=== PATIENT | female | born 1960 | race African-American/Black ===

== ENCOUNTER 2017-04-26 10:33 | Emergency (ER) | payer OTHER ==
[~2017-04-26 10:33] MED LIST: AMOX1TAB61 PO; LANS30CA PO; MECL25TA3 PO; ONDA4TAB10 PO; RANI150T6 PO
[2017-04-26] MEDS ORDERED: ONDA4TAB7 PO (10:56)
--- NOTE | 2017-04-26 10:56 | PHYS DOC ---
Past History Past Medical History: No Pertinent History Past Surgical History: Cholecystectomy Alcohol Use: None Drug Use: None Adult General Chief Complaint Chief Complaint: NAUSEA/VOMITING/DIARRHEA HPI HPI 56-year-old female presenting to the emergency department with nausea vomiting and diarrhea. She reports her symptoms been present for approximately 2-1/2 days. She reports since starting on Tuesday morning. It initially started off with nausea and then over the past 2 days she has experienced both vomiting and diarrhea. Her vomitus is nonbloody and nonbilious. She reports having history of a cholecystectomy. Her diarrhea is nonbloody and nonmucoid. She reports having about 5-6 bowel movement per day. She was today seen in her primary care physician clinic who referred her here for further evaluation workup and care. She denies any fevers at home. She does have a mild headache which is similar to previous headaches. She describes her pain in her head as a mild intermittent nonradiating pain not associated with neck stiffness. Review of systems is negative for numbness weakness tingling or any focal neurologic deficits. She denies vision changes. All other review of systems is negative unless otherwise noted in history of present illness. ED course: 56-year-old female presenting to the emergency department today with nausea vomiting and diarrhea. Vital signs show the patient to be afebrile with a normal heart rate. Blood pressure within normal limits. IV established. IV fluids and nausea medications given. Patient denies abdominal pain. Pertinent physical exam findings show Soft nontender abdomen without rebound tenderness or guarding present. Negative McBurneys point. Negative Naylor sign. No ecchymosis present. Bowel sounds are hyperactive. Not tympanic. Abdomen is nondistended. Blood work obtained and reviewed. On reexamination the patient is feeling much better. She is able to tolerate oral intake in the emergency department. Repeat abdominal exam continues to show soft nontender abdomen. The patient was then discharged home in stable condition to follow up with their primary care physician over the next 2-3 days. They were to return if their symptoms worsened or if they were concerned for any reason. [id number] discharge instructions and return precautions were given. Patient's questions were answered to their satisfaction. Patient is comfortable plan. Review of Systems Review of Systems SEE ABOVE Current Medications Current Medications Current Medications Medications (Trade) Dose Ordered Sig/Mario Start Time Stop Time Status Last Admin Dose Admin Ondansetron HCl (Zofran) 4 mg 1X ONCE 04/26/17 11:00 04/26/17 11:01 UNV Sodium Chloride 1,000 ml @ 1,000 mls/hr 1X ONCE 04/26/17 11:00 04/26/17 11:59 UNV Allergies Allergies Allergies Coded Allergies Type Severity Reaction Last Updated Verified No Known Drug Allergies 05/15/15 No Physical Exam Physical Exam Constitutional: Well developed, well nourished, no acute distress, non-toxic appearance. [] HENT: Normocephalic, atraumatic, bilateral external ears normal, oropharynx moist, no oral exudates, nose normal. [] Eyes: PERRLA, EOMI, conjunctiva normal, no discharge. [] Neck: Normal range of motion, no tenderness, supple, no stridor. [] Cardiovascular:Heart rate regular rhythm, no murmur [] Lungs & Thorax: Bilateral breath sounds clear to auscultation [] Abdomen: Bowel sounds normal, soft, no tenderness, no masses, no pulsatile masses. [] see above Skin: Warm, dry, no erythema, no rash. [] Back: No tenderness, no CVA tenderness. [] Extremities: No tenderness, no cyanosis, no clubbing, ROM intact, no edema. [] Neurologic: Alert and oriented X 3, normal motor function, normal sensory function, no focal deficits noted. [] Psychologic: Affect normal, judgement normal, mood normal. [] EKG EKG [] Radiology/Procedures Radiology/Procedures [] Course & Med Decision Making Course & Med Decision Making Pertinent Labs and Imaging studies reviewed. (See chart for details) [] Dragon Disclaimer Dragon Disclaimer This chart was dictated in whole or in part using Voice Recognition software in a busy, high-work load, and often noisy Emergency Department environment. It may contain unintended and wholly unrecognized errors or omissions. Departure Departure: Impression: Primary Impression: Nausea vomiting and diarrhea Condition: STABLE Referrals: SUNNY ZELAYA MD (PCP) Patient Instructions: Diarrhea, Nausea and Vomiting Additional Instructions: Thank you for allowing us to participate in your care today. Followup with your primary care physician in 3 days if your symptoms do not improve. Call your Primary Doctor tomorrow and inform them of your visit today. If you do not have a primary care provider you can ask for a list of our primary care providers. Return to the emergency department you have any new or concerning findings. This should be evaluated by the primary care physician and any necessary consulting services for continued management within a few days after discharge. Return to emergency room if you have any new or concerning symptoms including but not limited to fever, chills, nausea, vomiting, intractable pain, any new rashes, chest pain, shortness of air, uncontrolled bleeding, difficulty breathing, and/or vision loss. Scripts Ondansetron Hcl (ZOFRAN) 4 Mg Tablet 1 TAB PO PRN Q6HRS Y for NAUSEA, #6 TAB Prov: MELVINA HOPPER MD 04/26/17 MELVINA HOPPER MD Apr 26, 2017 10:56
[2017-04-26] MEDS ORDERED: IV NORMAL SALINE 1,000ML 1,000 ML IV ONE (11:00)
[2017-04-26 11:04] LABS: BASO % 1 % (0-3); EOS # 0.1 x10^3/uL (0.0-0.7); EOS % 3 % (0-3); HEMATOCRIT 37.7 % (36.0-47.0); HEMOGLOBIN 12.4 g/dL (12.0-15.5); LYMPH # 1.3 x10^3/uL (1.0-4.8); LYMPH % 43 % (24-48); MEAN CORPUSCULAR HEMOGLOBIN 28 pg (25-35); MEAN CORPUSCULAR HGB CONC 33 g/dL (31-37); MEAN CORPUSCULAR VOLUME 85 fL (79-100); MONO # 0.4 x10^3/uL (0.0-1.1); MONO % 13 % (0-9); NEUT # 1.3 x10^3uL (1.8-7.7); NEUT % 42 % (31-73); PLATELET COUNT 172 x10^3/uL (140-400); RED BLOOD COUNT 4.42 x10^6/uL (3.50-5.40); RED CELL DISTRIBUTION WIDTH 12.4 % (11.5-14.5); WHITE BLOOD COUNT 3.2 x10^3/uL (4.0-11.0)
[2017-04-26] MEDS ORDERED: ONDANSETRON PF 4 MG/2 ML VIAL. IV ONE (11:15)
[2017-04-26 11:18] LABS: ALBUMIN 3.7 g/dL (3.4-5.0); CALCIUM 9.1 mg/dL (8.5-10.1); CREATININE 0.8 mg/dL (0.6-1.0); DIRECT BILIRUBIN 0.1 mg/dL (0.0-0.2); GFR 89.8; POTASSIUM 3.6 mmol/L (3.5-5.1); TOTAL BILIRUBIN 0.3 mg/dL (0.2-1.0); TOTAL PROTEIN 8.7 g/dL (6.4-8.2)
[2017-04-26 11:25] LABS: BACTERIA,URINE 0 /HPF (0-FEW); BILIRUBIN,URINE NEG (NEG); CLARITY,URINE CLEAR; COLOR,URINE YELLOW; GLUCOSE,URINE NEG (NEG); NITRITE,URINE NEG (NEG); RBC,URINE RARE /HPF (0-2); SQUAMOUS EPITHELIAL CELL,UR OCC /LPF; UROBILINOGEN,URINE 0.2 mg/dL (0.2 mg/dL); WBC,URINE 0 /HPF (0-4)
[2017-04-26 12:54] VITALS: BP 123/78
== END 2017-04-26 12:40 | disposition home or self-care (01) ==
LOC: ER 10:33
DX: R11.2 Nausea with vomiting, unspecified (principal); R19.7 Diarrhea, unspecified; R51 Headache; Z90.49 Acquired absence of other specified parts of digestive tract
CPT/HCPCS: 36415; 80048; 80076; 81001; 83605; 83690; 85025; 96361; 96374; 99284; J2405; J7030

== ENCOUNTER → 2017-11-18 | Outpatient (CLI) | payer OTHER ==
[~2017-11-18] MED LIST changes: +IOHEXOL 240 MG/ML 50ML VIAL. ONE; +IOHEXOL 300 MG/ML 75 ML VIAL. IV ONE; +ONDA4TAB7 PO
[2017-11-18 17:11] LABS: BASO % 0 % (0-3); EOS % 1 % (0-3); HEMATOCRIT 41.5 % (36.0-47.0); HEMOGLOBIN 13.4 g/dL (12.0-15.5); LYMPH # 1.4 x10^3/uL (1.0-4.8); LYMPH % 40 % (24-48); MEAN CORPUSCULAR HEMOGLOBIN 28 pg (25-35); MEAN CORPUSCULAR HGB CONC 32 g/dL (31-37); MEAN CORPUSCULAR VOLUME 86 fL (79-100); MONO # 0.4 x10^3/uL (0.0-1.1); MONO % 11 % (0-9); NEUT # 1.7 x10^3uL (1.8-7.7); NEUT % 48 % (31-73); PLATELET COUNT 181 x10^3/uL (140-400); RED BLOOD COUNT 4.84 x10^6/uL (3.50-5.40); RED CELL DISTRIBUTION WIDTH 12.3 % (11.5-14.5); WHITE BLOOD COUNT 3.5 x10^3/uL (4.0-11.0)
[2017-11-18 17:17] LABS: ALBUMIN/GLOBULIN RATIO 0.8 (1.0-1.7); CALCIUM 9.7 mg/dL (8.5-10.1); CREATININE 0.8 mg/dL (0.6-1.0); GFR 89.5; POTASSIUM 3.6 mmol/L (3.5-5.1); TOTAL BILIRUBIN 0.4 mg/dL (0.2-1.0); TOTAL PROTEIN 9.1 g/dL (6.4-8.2)
--- NOTE | 2017-11-18 17:35 | RAD ---
CT abdomen and pelvis with contrast 11/18/2017 CLINICAL INDICATION: Lower abdominal pain with nausea and vomiting. COMPARISON: CT abdomen and pelvis 05/12/2015 TECHNIQUE: Multiple CT images of the abdomen and pelvis were obtained following intravenous and ministration of 75 mL Omnipaque 300. *One or more of the following individualized dose reduction techniques were utilized for this examination: 1. Automated exposure control. 2. Adjustment of the mA and/or kV according to patient size. 3. Use of iterative reconstruction technique. FINDINGS: Heart size is normal. Visualized lung bases are clear. There is mild focal fatty infiltration in the liver adjacent to the falciform. Prior cholecystectomy. Spleen, adrenal glands, pancreas and kidneys are unremarkable. No bile duct dilatation. Abdominal aorta is normal in caliber. Major portal, splenic and visualized superior mesenteric veins are widely patent. No retroperitoneal or mesenteric lymphadenopathy. The small and large bowel loops are normal in caliber without obstruction. Appendix is normal in appearance. There are few scattered colonic diverticula without diverticulitis. Urinary bladder unremarkable. Prior hysterectomy with the vaginal cuff unremarkable. No iliac or inguinal lymphadenopathy. Moderate disc degeneration at L4-L5 with disc space narrowing, endplate sclerosis and marginal osteophyte formation. There are no destructive osseous lesions. IMPRESSION: 1. No CT evidence of acute abdominal or pelvic process. 2. No bowel obstruction, free fluid or appendicitis. 3. Mild diverticulosis without diverticulitis. No abdominal free fluid. No pneumoperitoneum. Electronically signed by: Arik Bonds MD (11/18/2017 5:31 PM) [id number]
== END | disposition home or self-care (01) ==
LOC: CT 16:07
PROVIDERS: ATTEND Family Medicine Sports Medicine
DX: K57.90 Diverticulosis of intestine, part unspecified, without perforation or abscess without bleeding (principal); M51.36 Other intervertebral disc degeneration, lumbar region; M25.78 Osteophyte, vertebrae; K76.0 Fatty (change of) liver, not elsewhere classified; Z90.49 Acquired absence of other specified parts of digestive tract
CPT/HCPCS: 36415; 74177; 80053; 85025; Q9966; Q9967

== ENCOUNTER 2017-11-19 10:05 | Emergency (ER) | payer OTHER ==
[~2017-11-19] VITALS: Ht 175.3 cm; Wt 80.7 kg
[~2017-11-19 10:05] MED LIST changes: -IOHEXOL 240 MG/ML 50ML VIAL. ONE; -IOHEXOL 300 MG/ML 75 ML VIAL. IV ONE
[2017-11-19] MEDS ORDERED: ONDANSETRON ODT 4 MG TAB.RAPDIS PO ONE (10:30)
--- NOTE | 2017-11-19 10:48 | PHYS DOC ---
Past History Past Medical History: No Pertinent History Past Surgical History: No Surgical History Alcohol Use: None Drug Use: None Adult General Chief Complaint Chief Complaint: NAUSEA/VOMITING/DIARRHEA HPI HPI Patient is a 57 year old F who presents with nausea over the past 4 days. She states that she had nasal drainage and congestion several days prior to the start of her nausea. She was seen by her doctor yesterday. At that time she did have labs and CT of her abd/pelvis with IV contrast. Oral contrast was attempted to be used however she vomited it up. This the only time she has vomited during this episode. She has no other associated symptoms at this time. She has no other exacerbating or alleviating factors. Review of Systems Review of Systems Constitutional: Denies fever or chills [] Eyes: Denies change in visual acuity, redness, or eye pain [] HENT: Denies nasal congestion or sore throat [] Respiratory: Denies cough or shortness of breath [] Cardiovascular: No additional information not addressed in HPI [] GI: Denies abdominal pain, bloody stools or diarrhea [] : Denies dysuria or hematuria [] Musculoskeletal: Denies back pain or joint pain [] Integument: Denies rash or skin lesions [] Neurologic: Denies headache, focal weakness or sensory changes [] Endocrine: Denies polyuria or polydipsia [] All other systems were reviewed and found to be within normal limits, except as documented in this note. Family History Family History No pertinent family medical history was reported Allergies Allergies Allergies Coded Allergies Type Severity Reaction Last Updated Verified No Known Drug Allergies 05/15/15 No Physical Exam Physical Exam Constitutional: Well developed, well nourished, no acute distress, non-toxic appearance. [] HENT: Normocephalic, atraumatic Eyes: EOMI, conjunctiva normal, no discharge. [] Neck: Normal range of motion, no tenderness, supple, no stridor. [] Cardiovascular:Heart rate regular rhythm, no murmur [] Lungs & Thorax: Bilateral breath sounds clear to auscultation [] Abdomen: Bowel sounds normal, soft, no tenderness, no masses, no pulsatile masses. [] Skin: Warm, dry, no erythema, no rash. [] Extremities: No tenderness, no cyanosis, no clubbing, ROM intact, no edema. [] Neurologic: Alert and oriented X 3, normal motor function, normal sensory function, no focal deficits noted. [] Psychologic: Affect normal, judgement normal, mood normal. [] Current Patient Data Vital Signs Vital Signs Date Time Temp Pulse Resp B/P (MAP) Pulse Ox O2 Delivery O2 Flow Rate FiO2 11/19/17 11:14 65 16 165/96 (119) 98 Room Air 11/19/17 10:44 63 16 138/89 (105) 99 Room Air 11/19/17 10:12 98.0 73 16 100 Room Air Lab Results Laboratory Tests Test 11/19/17 11:00 White Blood Count 2.9 x10^3/uL (4.0-11.0) Red Blood Count 4.58 x10^6/uL (3.50-5.40) Hemoglobin 12.7 g/dL (12.0-15.5) Hematocrit 38.9 % (36.0-47.0) Mean Corpuscular Volume 85 fL (79-100) Mean Corpuscular Hemoglobin 28 pg (25-35) Mean Corpuscular Hemoglobin Concent 33 g/dL (31-37) Red Cell Distribution Width 12.3 % (11.5-14.5) Platelet Count 179 x10^3/uL (140-400) Neutrophils (%) (Auto) 54 % (31-73) Lymphocytes (%) (Auto) 31 % (24-48) Monocytes (%) (Auto) 14 % (0-9) Eosinophils (%) (Auto) 1 % (0-3) Basophils (%) (Auto) 1 % (0-3) Neutrophils # (Auto) 1.6 x10^3uL (1.8-7.7) Lymphocytes # (Auto) 0.9 x10^3/uL (1.0-4.8) Monocytes # (Auto) 0.4 x10^3/uL (0.0-1.1) Eosinophils # (Auto) 0.0 x10^3/uL (0.0-0.7) Basophils # (Auto) 0.0 x10^3/uL (0.0-0.2) Sodium Level 138 mmol/L (136-145) Potassium Level 4.2 mmol/L (3.5-5.1) Chloride Level 102 mmol/L (98-107) Carbon Dioxide Level 26 mmol/L (21-32) Anion Gap 10 (6-14) Blood Urea Nitrogen 9 mg/dL (7-20) Creatinine 0.7 mg/dL (0.6-1.0) Estimated GFR (Cockcroft-Gault) 104.4 BUN/Creatinine Ratio 13 (6-20) Glucose Level 102 mg/dL (70-99) Calcium Level 9.4 mg/dL (8.5-10.1) Total Bilirubin 0.5 mg/dL (0.2-1.0) Aspartate Amino Transf (AST/SGOT) 33 U/L (15-37) Alanine Aminotransferase (ALT/SGPT) 23 U/L (14-59) Alkaline Phosphatase 92 U/L (46-116) Total Protein 8.6 g/dL (6.4-8.2) Albumin 3.7 g/dL (3.4-5.0) Albumin/Globulin Ratio 0.8 (1.0-1.7) Lipase 133 U/L (73-393) EKG EKG [] Radiology/Procedures Radiology/Procedures [] Course & Med Decision Making Course & Med Decision Making Pertinent Labs and Imaging studies reviewed. (See chart for details) [] Dragon Disclaimer Dragon Disclaimer This electronic medical record was generated, in whole or in part, using a voice recognition dictation system. Departure Departure: Impression: Primary Impression: Nausea alone Disposition: 01 HOME, SELF-CARE Condition: STABLE Referrals: LILLIE VERDIN DO, [facility] (PCP) Patient Instructions: Nausea, Adult Additional Instructions: Barbara was seen in the emergency department for nausea. No emergency medical condition was found on history or physical exam. She did have normal labs. She was given IV fluids with mild improvement in her symptoms. She was advised to return to the emergency room as soon as possible if she develops new or worsening symptoms. She was also advised follow-up with her primary care doctor as needed for further management. RAFAEL CHACON MD Nov 19, 2017 10:48
[2017-11-19] MEDS ORDERED: IV NORMAL SALINE 1,000ML 1,000 ML IV ONE (11:00)
[2017-11-19 11:22] LABS: BASO % 1 % (0-3); EOS % 1 % (0-3); HEMATOCRIT 38.9 % (36.0-47.0); HEMOGLOBIN 12.7 g/dL (12.0-15.5); LYMPH # 0.9 x10^3/uL (1.0-4.8); LYMPH % 31 % (24-48); MEAN CORPUSCULAR HEMOGLOBIN 28 pg (25-35); MEAN CORPUSCULAR HGB CONC 33 g/dL (31-37); MEAN CORPUSCULAR VOLUME 85 fL (79-100); MONO # 0.4 x10^3/uL (0.0-1.1); MONO % 14 % (0-9); NEUT # 1.6 x10^3uL (1.8-7.7); NEUT % 54 % (31-73); PLATELET COUNT 179 x10^3/uL (140-400); RED BLOOD COUNT 4.58 x10^6/uL (3.50-5.40); RED CELL DISTRIBUTION WIDTH 12.3 % (11.5-14.5); WHITE BLOOD COUNT 2.9 x10^3/uL (4.0-11.0)
[2017-11-19 11:36] LABS: ALBUMIN 3.7 g/dL (3.4-5.0); ALBUMIN/GLOBULIN RATIO 0.8 (1.0-1.7); CALCIUM 9.4 mg/dL (8.5-10.1); CREATININE 0.7 mg/dL (0.6-1.0); GFR 104.4; POTASSIUM 4.2 mmol/L (3.5-5.1); TOTAL BILIRUBIN 0.5 mg/dL (0.2-1.0); TOTAL PROTEIN 8.6 g/dL (6.4-8.2)
[2017-11-19] MEDS ORDERED: ACETAMINOPHEN 325 MG TABLET PO ONE (12:00)
[2017-11-19 12:06] VITALS: BP 128/79
== END 2017-11-19 12:13 | disposition home or self-care (01) ==
LOC: ER 10:05
DX: R11.0 Nausea (principal); R09.81 Nasal congestion
CPT/HCPCS: 36415; 80053; 83690; 85025; 99284; Q0162; J7030

== ENCOUNTER → 2020-05-27 | Outpatient (CLI) | payer OTHER ==
[~2020-05-27] MED LIST changes: +MECL-75 PO; -MECL25TA3 PO; +RANI-376 PO; -RANI150T6 PO
--- NOTE | 2020-05-27 13:41 | RAD ---
EXAM: Maxillofacial bone CT without contrast. HISTORY: Sinusitis. TECHNIQUE: Computed tomographic images of the maxillofacial bones were obtained without contrast. *One or more of the following individualized dose reduction techniques were utilized for this examination: 1. Automated exposure control. 2. Adjustment of the mA and/or kV according to patient size. 3. Use of iterative reconstruction technique. COMPARISON: None. FINDINGS: The paranasal sinuses are clear. The ostiomeatal units are patent. There is minimal leftward nasal septal deviation. There is no sinus wall erosion or thickening. The orbits and mastoid air cells are unremarkable. The temporal minimal joints are intact. The visualized portions the brain are unremarkable. No calvarial lesion is seen. The mandible is excluded from the [id number]. IMPRESSION: No convincing acute or chronic sinusitis. Electronically signed by: Nikki Purvis MD (05/27/2020 1:38 PM) [id number]
== END ==
LOC: CT 12:46
DX: J32.9 Chronic sinusitis, unspecified (principal); J34.2 Deviated nasal septum; R51.9 Headache, unspecified
CPT/HCPCS: 70486

== ENCOUNTER 2020-06-01 14:26 | Emergency (ER) | payer OTHER ==
[~2020-06-01] VITALS: Ht 175.3 cm; Wt 71.8 kg
--- NOTE | 2020-06-01 15:51 | PHYS DOC ---
Past History Past Medical History: Diverticulitis, GERD (ALVAREZ SUERO APRN) Past Surgical History: Cholecystectomy, Hysterectomy, Other (ALVAREZ SUERO APRN) Alcohol Use: None Drug Use: None (ALVAREZ SUERO APRN) Adult General Chief Complaint Chief Complaint: ABDOMINAL PAIN HPI HPI Patient is a 59 year old FEMALE who presents with complaints of intermittent left lower quadrant pressure that started at approximately 1500 yesterday. Patient states that she has had a history of diverticulitis in the past and was treated approximately a year ago at for diverticulitis. Patient states that this presentation is similar to her diverticulitis presentation a year ago. Patient denies any blood in her stools, however she complains of intermittent loose stools that she does not consider diarrhea and constipation that she treats with occasional p.o. of MiraLAX. Patient states that she had a normal BM today after taking MiraLAX yesterday. Patient reports taking Prilosec and a multivitamin with vitamin D and vitamin C at home as her only medications. Patient reports a family history that her mom and dad are generally healthy and do not have any health problems. Patient also reports a history of esophageal strictures that she has to have dilated approximately every 3 years, patient states her last esophageal dilation was 2 years ago and is expecting to get one sometime in 2020 again with her doctor Braulio at . Patient does not report any drug allergies. Patient denies any recent fever or chills, any visual changes, nasal congestion cough or shortness of breath. Patient denies chest pain, or edema, patient denies nausea, or blood in her stools, patient denies urinary problems, back pains, joint pains, skin rashes, headaches, focal weaknesses or sensory changes. Patient denies any swelling of her glands, depressions, anxieties, homicidal or suicidal ideation. (ALVAREZ SUERO APRN) Review of Systems Review of Systems Constitutional: Denies fever or chills Eyes: Denies change in visual acuity, redness, or eye pain HENT: Denies nasal congestion or sore throat Respiratory: Denies cough or shortness of breath Cardiovascular: No additional information not addressed in HPI GI: Complains of left lower quadrant pain with intermittent loose stool and intermittent constipation, denies blood in her stool. : Denies dysuria or hematuria Musculoskeletal: Denies back pain or joint pain Integument: Denies rash or skin lesions Neurologic: Denies headache, focal weakness or sensory changes Psychiatric: Patient denies homicidal or suicidal ideation, denies recent anxieties or depressions. All other systems were reviewed and found to be within normal limits, except as documented in this note. (ALVAREZ SUERO APRN) Family History Family History Patient states both her mother and father are generally healthy and did not take medications as far she is aware of. (ALVAREZ SUERO APRN) Current Medications Current Medications Patient reports only being on a multivitamin with D and C, also takes Prilosec (ALVAREZ SUERO APRN) Allergies Allergies Allergies Coded Allergies Type Severity Reaction Last Updated Verified No Known Drug Allergies 05/15/15 No (ALVAREZ SUERO APRN) Physical Exam Physical Exam Constitutional: Well developed, well nourished, no acute distress, non-toxic appearance. HENT: Normocephalic, atraumatic, bilateral external ears normal, oropharynx moist, no oral exudates, nose normal. Eyes: PERRLA, EOMI, conjunctiva normal, no discharge. Neck: Normal range of motion, no tenderness, supple, no stridor. Cardiovascular:Heart rate regular rhythm, no murmur Lungs & Thorax: Bilateral breath sounds clear to auscultation Abdomen: Bowel sounds hypoactive, soft, tenderness to palpation left lower quadrant, no rebound tenderness, no psoas sign, no McBurney's point tenderness, no Naylor sign, no masses, no pulsatile masses. Skin: Warm, dry, no erythema, no rash. Back: No tenderness, no CVA tenderness. Extremities: No tenderness, no cyanosis, no clubbing, ROM intact, no edema. Neurologic: Alert and oriented X 3, normal motor function, normal sensory function, no focal deficits noted. Psychologic: Affect normal, judgement normal, mood normal. (ALVAREZ SUERO APRN) Current Patient Data Vital Signs Vital Signs Date Time Temp Pulse Resp B/P (MAP) Pulse Ox O2 Delivery O2 Flow Rate FiO2 06/01/20 15:37 98.0 74 16 139/81 (100) 99 Room Air (ALVAREZ SUERO APRN) EKG EKG [] (ALVAREZ SUERO APRN) Radiology/Procedures Radiology/Procedures [] (ALVAREZ SUERO APRN) Heart Score Risk Factors: Risk Factors: DM, Current or recent (<one month) smoker, HTN, HLP, family history of CAD, obesity. Risk Scores: Risk Factors: DM, Current or recent (<one month) smoker, HTN, HLP, family history of CAD, obesity. (ALVAREZ SUERO APRN) Course & Med Decision Making Course & Med Decision Making Pertinent Labs and Imaging studies reviewed. (See chart for details) 59-year-old patient reported to the ER with complaints of left lower quadrant pain patient's vital signs were stable, physical exam was concerning for diverticulitis as patient had a history for diverticulitis. A work-up was star anastasia, the patient's urine was not infected, patient's venous blood lab work was equivocal, patient's CT scan showed a distal diverticulitis, discussed findings with patient, elected to start first dose of antibiotic for IV in the emergency department and start a home trial of antibiotics. Patient understood to fill her prescriptions immediately and start taking tomorrow morning, patient understands that if her symptoms become worse while taking her antibiotics that she is to return to the emergency department for possible admission to the hospital. Patient gave verbal understanding of discharge instructions, prescription instructions, return to ER concerns, patient had no further questions or concerns, patient discharged home without incident. Patient was discharged with prescriptions for Flagyl and Cipro. (ALVAREZ SUERO APRN) Dragon Disclaimer Dragon Disclaimer This electronic medical record was generated, in whole or in part, using a voice recognition dictation system. (ALVAREZ SUERO APRN) Attending Co-Sign The patient was seen and interviewed as well as examined at the bedside. The chart was reviewed. The case was discussed. Agree with the plan of care. (LUCRETIA STODDARD DO) Departure Departure: Impression: Primary Impression: Diverticulitis large intestine Referrals: BEKAH FERNANDEZ (PCP) Patient Instructions: Diverticulitis Additional Instructions: Take medications as prescribed, return to the emergency department for worsening symptoms, see your doctor soon. Problem Qualifiers Primary Impression: Diverticulitis large intestine Diverticulitis bleeding: without bleeding Diverticulitis complication: without perforation or abscess Qualified Codes: K57.32 - Diverticulitis of large intestine without perforation or abscess without bleeding ALVAREZ SUERO APRN Jun 01, 2020 15:51 LUCRETIA STODDARD DO Jun 05, 2020 17:51
[2020-06-01 16:35] LABS: BACTERIA,URINE 0 /HPF (0-FEW); BILIRUBIN,URINE NEG (NEG); CLARITY,URINE CLEAR; COLOR,URINE YELLOW; GLUCOSE,URINE NEG (NEG); NITRITE,URINE NEG (NEG); RBC,URINE 0 /HPF (0-2); SQUAMOUS EPITHELIAL CELL,UR FEW /LPF; UROBILINOGEN,URINE 0.2 mg/dL (0.2 mg/dL); WBC,URINE 0 /HPF (0-4)
[2020-06-01] MEDS ORDERED: IV NORMAL SALINE 1,000ML 1,000 ML IV ONE (17:00)
[2020-06-01] MEDS ORDERED: IOHEXOL 300 MG/ML 75 ML VIAL. IV ONE (17:00)
[2020-06-01 17:38] LABS: CALCIUM 9.3 mg/dL (8.5-10.1); CREATININE 0.8 mg/dL (0.6-1.0); GFR 88.8; POTASSIUM 3.5 mmol/L (3.5-5.1)
[2020-06-01 17:41] LABS: BASO % 0 % (0-3); EOS # 0.1 x10^3/uL (0.0-0.7); EOS % 1 % (0-3); HEMATOCRIT 37.9 % (36.0-47.0); HEMOGLOBIN 11.9 g/dL (12.0-15.5); LYMPH % 18 % (24-48); MEAN CORPUSCULAR HEMOGLOBIN 28 pg (25-35); MEAN CORPUSCULAR HGB CONC 31 g/dL (31-37); MEAN CORPUSCULAR VOLUME 88 fL (79-100); MONO # 0.7 x10^3/uL (0.0-1.1); MONO % 12 % (0-9); NEUT # 3.9 x10^3uL (1.8-7.7); NEUT % 69 % (31-73); PLATELET COUNT 166 x10^3/uL (140-400); RED BLOOD COUNT 4.32 x10^6/uL (3.50-5.40); RED CELL DISTRIBUTION WIDTH 12.6 % (11.5-14.5); WHITE BLOOD COUNT 5.6 x10^3/uL (4.0-11.0)
[2020-06-01 17:43] LABS: ALBUMIN 3.9 g/dL (3.4-5.0); ALBUMIN/GLOBULIN RATIO 0.8 (1.0-1.7); TOTAL BILIRUBIN 0.4 mg/dL (0.2-1.0); TOTAL PROTEIN 8.5 g/dL (6.4-8.2)
--- NOTE | 2020-06-01 17:45 | RAD ---
Exam: CT of abdomen and pelvis with contrast INDICATION: Left lower quadrant pain TECHNIQUE: Sequential axial images through the abdomen and pelvis obtained following the administration of 75 mL of Isovue-370 IV contrast. Sagittal and coronal reformatted images were reconstructed from the axial data and reviewed. Comparisons: 11/18/2017 FINDINGS: Heart size is normal. No pericardial effusion. Visualized lung bases are clear. No pleural effusion. Liver, spleen, pancreas, and adrenals are unremarkable. Gallbladder surgically absent. Kidneys demonstrate symmetric enhancement. No perinephric inflammation or hydronephrosis. No renal or ureteral calculi are identified. Bladder is decompressed not well evaluated. Uterus is absent. No abnormal adnexal mass. There is an inflamed diverticula with associated wall thickening at the distal descending colon. No evidence for perforation or adjacent abscess. Remainder of the large and small bowel are unremarkable. Appendix is nonidentified. No free intra-abdominal air or fluid. Abdominal aorta has a normal course and caliber. Abdominal vasculature is patent. No enlarged abdominal lymph nodes are identified. No suspicious osseous lesions or acute fractures. IMPRESSION: Findings of diverticulitis at the distal descending colon. No evidence for perforation or adjacent abscess. Follow-up colonoscopy posttreatment to ensure no underlying neoplasm is recommended. Exposure: One or more of the following in the visualized dose reduction techniques were utilized for this examination: 1. Automated exposure control 2. Adjustment of the MA and/or KV according to patient size 3. Use of iterative of reconstructive technique Electronically signed by: Aroldo Tellez MD (06/01/2020 5:42 PM) [id number]
[2020-06-01] MEDS ORDERED: IV NORMAL SALINE 50ML 50 ML ONE (18:30)
[2020-06-01] MEDS ORDERED: cefTRIAXone SODIUM 1 GM VIAL ONE (18:30)
[2020-06-01 19:13] VITALS: BP 134/86
[2020-06-01] MEDS ORDERED: METR500T PO (19:54)
[2020-06-01] MEDS ORDERED: CIPR500T94 PO (19:54)
[2020-06-01] MEDS ORDERED: ONDANSETRON PF 4 MG/2 ML VIAL. IVP ONE (20:00)
== END 2020-06-01 20:06 | disposition home or self-care (01) ==
LOC: ER 14:26
DX: K57.32 Diverticulitis of large intestine without perforation or abscess without bleeding (principal); K21.9 Gastro-esophageal reflux disease without esophagitis; Z90.49 Acquired absence of other specified parts of digestive tract; Z90.710 Acquired absence of both cervix and uterus
CPT/HCPCS: 36415; 74177; 80053; 81001; 83690; 85025; 96361; 96365; 96368; 96375; 99285; J0696; J2405; J3010; J3490; J7030; Q9967

== ENCOUNTER 2020-06-03 06:14 | Inpatient (IN) | payer OTHER ==
[~2020-06-03] VITALS: Ht 175.3 cm; Wt 74.4 kg
[~2020-06-03 06:14] MED LIST changes: +CIPR500T94 PO; +METR500T PO
[2020-06-03] MEDS ORDERED: MORPHINE SULFATE 4 MG/ML DISP.SYRIN. IV ONE (07:00)
[2020-06-03] MEDS ORDERED: IV NORMAL SALINE 1,000ML 1,000 ML IV SCH (07:00)
[2020-06-03 07:08] LABS: BASO % 0 % (0-3); EOS # 0.1 x10^3/uL (0.0-0.7); EOS % 2 % (0-3); HEMOGLOBIN 11.9 g/dL (12.0-15.5); LYMPH # 0.5 x10^3/uL (1.0-4.8); LYMPH % 9 % (24-48); MEAN CORPUSCULAR HEMOGLOBIN 27 pg (25-35); MEAN CORPUSCULAR HGB CONC 31 g/dL (31-37); MEAN CORPUSCULAR VOLUME 87 fL (79-100); MONO # 0.5 x10^3/uL (0.0-1.1); MONO % 9 % (0-9); NEUT # 4.6 x10^3uL (1.8-7.7); NEUT % 80 % (31-73); PLATELET COUNT 157 x10^3/uL (140-400); RED BLOOD COUNT 4.35 x10^6/uL (3.50-5.40); RED CELL DISTRIBUTION WIDTH 12.3 % (11.5-14.5); WHITE BLOOD COUNT 5.8 x10^3/uL (4.0-11.0)
[2020-06-03] MEDS ORDERED: CIPROFLOXACIN 400MG PREMIX 200 ML IV ONE (07:15)
[2020-06-03 07:17] LABS: CALCIUM 9.3 mg/dL (8.5-10.1); CREATININE 0.8 mg/dL (0.6-1.0); GFR 88.8; POTASSIUM 3.4 mmol/L (3.5-5.1)
[2020-06-03 07:23] LABS: ALBUMIN 3.5 g/dL (3.4-5.0); ALBUMIN/GLOBULIN RATIO 0.7 (1.0-1.7); TOTAL BILIRUBIN 0.4 mg/dL (0.2-1.0); TOTAL PROTEIN 8.2 g/dL (6.4-8.2)
--- NOTE | 2020-06-03 08:02 | PHYS DOC ---
Past History Past Medical History: Diverticulitis, GERD Past Surgical History: Cholecystectomy, Hysterectomy, Other Alcohol Use: None Drug Use: None Adult General Chief Complaint Chief Complaint: ABDOMINAL PAIN HPI HPI Patient is a 59-year-old female who presents for left lower quadrant pain. She was seen and evaluated at our facility 48 hours ago and after comprehensive work-up, was diagnosed with diverticulitis. She was subsequently discharged home on metronidazole and Cipro but did not fill these until yesterday , she has subsequently only taken x2 doses of each medication. She presents this morning with ongoing pain in left lower quadrant with mild radiation to other areas of abdomen. No fever, no chills, no chest pain or shortness of breath, no changes in bladder or bowel function with last bowel movement this morning and was unremarkable and normal per patient. Review of Systems Review of Systems Fourteen body systems of review of systems have been reviewed. See HPI for pertinent positives and negative responses, other guaman all other systems are negative, non-pertinent or non-contributory Current Medications Current Medications Current Medications Medications (Trade) Dose Ordered Sig/Mario Start Time Stop Time Status Last Admin Dose Admin Ciprofloxacin Lactate 200 ml @ 200 mls/hr 1X ONCE 06/03/20 07:15 06/03/20 08:14 06/03/20 07:26 200 MLS/HR Metronidazole 100 ml @ 100 mls/hr 1X ONCE 06/03/20 07:15 06/03/20 08:14 06/03/20 07:25 100 MLS/HR Morphine Sulfate (Morphine 4mg Syringe) 4 mg 1X ONCE 06/03/20 07:00 06/03/20 07:01 DC 06/03/20 06:53 4 MG Sodium Chloride 1,000 ml @ 1,000 mls/hr Q1H 06/03/20 07:00 06/03/20 07:59 06/03/20 06:52 1,000 MLS/HR Allergies Allergies Allergies Coded Allergies Type Severity Reaction Last Updated Verified No Known Drug Allergies 05/15/15 No Physical Exam Physical Exam Constitutional: Well developed, well nourished, no acute distress, non-toxic appearance. HENT: Normocephalic, atraumatic, bilateral external ears normal, oropharynx moist, no oral exudates, nose normal. Eyes: PERRLA, EOMI, conjunctiva normal, no discharge. Neck: Normal range of motion, no tenderness, supple, no stridor. Cardiovascular: Heart rate regular, sinus rhythm, no murmurs rubs or gallops Lungs & Thorax: Bilateral breath sounds clear to auscultation Abdomen: Bowel sounds normal, soft, diffuse tenderness most focal in left lower quadrant, guarding present but without rebound, no masses, no pulsatile masses. No peritoneal signs Skin: Warm, dry, no erythema, no rash. Back: No tenderness, no CVA tenderness. Extremities: No tenderness, no cyanosis, no clubbing, ROM intact, no edema. Neurologic: Alert and oriented X 3, grossly normal motor & sensory function, no focal deficits noted. Psychologic: Affect normal, judgement normal, mood normal. Current Patient Data Vital Signs Vital Signs Date Time Temp Pulse Resp B/P (MAP) Pulse Ox O2 Delivery O2 Flow Rate FiO2 06/03/20 06:53 18 97 06/03/20 06:14 98.2 125/77 (93) Lab Results Laboratory Tests Test 06/03/20 06:45 White Blood Count 5.8 x10^3/uL (4.0-11.0) Red Blood Count 4.35 x10^6/uL (3.50-5.40) Hemoglobin 11.9 g/dL (12.0-15.5) L Hematocrit 38.0 % (36.0-47.0) Mean Corpuscular Volume 87 fL (79-100) Mean Corpuscular Hemoglobin 27 pg (25-35) Mean Corpuscular Hemoglobin Concent 31 g/dL (31-37) Red Cell Distribution Width 12.3 % (11.5-14.5) Platelet Count 157 x10^3/uL (140-400) Neutrophils (%) (Auto) 80 % (31-73) H Lymphocytes (%) (Auto) 9 % (24-48) L Monocytes (%) (Auto) 9 % (0-9) Eosinophils (%) (Auto) 2 % (0-3) Basophils (%) (Auto) 0 % (0-3) Neutrophils # (Auto) 4.6 x10^3uL (1.8-7.7) Lymphocytes # (Auto) 0.5 x10^3/uL (1.0-4.8) L Monocytes # (Auto) 0.5 x10^3/uL (0.0-1.1) Eosinophils # (Auto) 0.1 x10^3/uL (0.0-0.7) Basophils # (Auto) 0.0 x10^3/uL (0.0-0.2) Sodium Level 137 mmol/L (136-145) Potassium Level 3.4 mmol/L (3.5-5.1) L Chloride Level 103 mmol/L (98-107) Carbon Dioxide Level 25 mmol/L (21-32) Anion Gap 9 (6-14) Blood Urea Nitrogen 7 mg/dL (7-20) Creatinine 0.8 mg/dL (0.6-1.0) Estimated GFR (Cockcroft-Gault) 88.8 BUN/Creatinine Ratio 9 (6-20) Glucose Level 110 mg/dL (70-99) H Calcium Level 9.3 mg/dL (8.5-10.1) Total Bilirubin 0.4 mg/dL (0.2-1.0) Aspartate Amino Transferase (AST) 28 U/L (15-37) Alanine Aminotransferase (ALT) 21 U/L (14-59) Alkaline Phosphatase 99 U/L (46-116) Troponin I Quantitative < 0.017 ng/mL (0-0.055) Total Protein 8.2 g/dL (6.4-8.2) Albumin 3.5 g/dL (3.4-5.0) Albumin/Globulin Ratio 0.7 (1.0-1.7) L Lipase 63 U/L (73-393) L EKG EKG [] Radiology/Procedures Radiology/Procedures PROCEDURE: CT ABD PELV W/ IV CONTRST ONLY Exam: CT of abdomen and pelvis with contrast INDICATION: Left lower quadrant pain TECHNIQUE: Sequential axial images through the abdomen and pelvis obtained following the administration of 75 mL of Isovue-370 IV contrast. Sagittal and coronal reformatted images were reconstructed from the axial data and reviewed. Comparisons: 11/18/2017 FINDINGS: Heart size is normal. No pericardial effusion. Visualized lung bases are clear. No pleural effusion. Liver, spleen, pancreas, and adrenals are unremarkable. Gallbladder surgically absent. Kidneys demonstrate symmetric enhancement. No perinephric inflammation or hydronephrosis. No renal or ureteral calculi are identified. Bladder is decompressed not well evaluated. Uterus is absent. No abnormal adnexal mass. There is an inflamed diverticula with associated wall thickening at the distal descending colon. No evidence for perforation or adjacent abscess. Remainder of the large and small bowel are unremarkable. Appendix is nonidentified. No free intra-abdominal air or fluid. Abdominal aorta has a normal course and caliber. Abdominal vasculature is patent. No enlarged abdominal lymph nodes are identified. No suspicious osseous lesions or acute fractures. IMPRESSION: Findings of diverticulitis at the distal descending colon. No evidence for perforation or adjacent abscess. Follow-up colonoscopy posttreatment to ensure no underlying neoplasm is recommended. Exposure: One or more of the following in the visualized dose reduction techniques were utilized for this examination: 1. Automated exposure control 2. Adjustment of the MA and/or KV according to patient size 3. Use of iterative of reconstructive technique Electronically signed by: Aroldo Tellez MD (06/01/2020 5:42 PM) [id number] Heart Score HEART Score for Chest Pain: HEART Score for Chest Pain Response (Comments) Value History Slighlty/Non-Suspicious 0 ECG Normal 0 Age >45 - < 65 1 Risk Factors 1 or 2 Risk Factors 1 Total 2 Risk Factors: Risk Factors: DM, Current or recent (<one month) smoker, HTN, HLP, family history of CAD, obesity. Risk Scores: Risk Factors: DM, Current or recent (<one month) smoker, HTN, HLP, family history of CAD, obesity. Course & Med Decision Making Course & Med Decision Making Pertinent Labs and Imaging studies reviewed. (See chart for details) Discussed most likely diagnosis of failed outpatient treatment of diverticulitis In absence of other concerning signs or symptoms and given extensive work-up received approximately 48 hours ago, decision to reimage and/or pursue other diagnostic studies this ER visit was deferred Nonetheless, patient still uncomfortable and having failed outpatient treatment I feel she is a candidate for hospital admission for IV fluid rehydration, antibiotics, and pain management On-call hospitalist, Dr. Linn, contacted and case discussed. He agreed for admission to [facility] for continued medical management I updated patient on this plan of care and she is agreeable, all questions and concerns addressed prior to ER transport to [facility] for continued medical care Dragon Disclaimer Dragon Disclaimer This electronic medical record was generated, in whole or in part, using a voice recognition dictation system. Departure Departure: Impression: Primary Impression: Diverticulitis Disposition: ADMITTED INPT THIS HOSP ([facility]) Admitting Physician: Halle Linn Referrals: BEKAH FERNANDEZ (PCP) FAUSTO KING DO Jun 03, 2020 08:02
[2020-06-03 08:06] LABS: BACTERIA,URINE FEW /HPF (0-FEW); BILIRUBIN,URINE NEG (NEG); CLARITY,URINE HAZY; COLOR,URINE AMBER; GLUCOSE,URINE NEG (NEG); NITRITE,URINE NEG (NEG); SQUAMOUS EPITHELIAL CELL,UR FEW /LPF; UROBILINOGEN,URINE 0.2 mg/dL (0.2 mg/dL)
[2020-06-03] MEDS ORDERED: ONDANSETRON PF 4 MG/2 ML VIAL. IVP PRN ×2 (08:45→17:15)
[2020-06-03] MEDS ORDERED: MORPHINE SULFATE 2 MG/ML DISP.SYRIN. IVP PRN (08:45)
[2020-06-03] MEDS ORDERED: ONDANSETRON PF 4 MG/2 ML VIAL. IVP ONE (09:00)
[2020-06-03] MEDS ORDERED: IV NORMAL SALINE 1,000ML 1,000 ML IV ONE (15:30)
[2020-06-03 16:42] VITALS: BP 127/77
[2020-06-03] MEDS: POTASSIUM CL 40MEQ D5-0.45NACL 1,000 ML IV SCH (17:00)
--- NOTE | 2020-06-03 17:08 | NUR ---
NURSING NOTE ADMIT PT ADMIT TO ROOM 105 FOR DX OF DIVERTICULITIS VIA EMS ACCOMPANIED BY EMS PERSONNEL. PT SETTLED IN ROOM. DR LAZO AT BEDSIDE. EVITA SPRAGUE.
--- NOTE | 2020-06-03 17:53 | HP ---
ADMIT DATE: 06/03/2020 HISTORY OF PRESENT ILLNESS: The patient is a 59-year-old -[place] female patient, who apparently came to the Emergency Room complaining of lower quadrant pain. She was seen and evaluated at the [facility] Emergency Room about 48 hours ago and after comprehensive workup, she was diagnosed with diverticulitis. She was subsequently discharged home on metronidazole and Cipro, but did not fill these until yesterday. She has subsequently only taken 2 doses of each medication. She presents this morning with ongoing pain in left lower quadrant with mild radiation to other areas of the abdomen. There is no fever, no chills, no chest pain, no shortness of breath. No dysuria, frequency or hematuria. She had had a bowel movement this morning and was normal as per patient description. She has had lab work done again, which showed that she has mild hypokalemia and was basically admitted and was started on IV antibiotic as well as IV pain medication and IV fluid. PAST MEDICAL HISTORY: Significant for previous episode of diverticulitis about a year and half ago for which she was seen at [facility]. She is known to have esophageal stricture that was dilated twice. She has gastroesophageal reflux disease and Hollingsworth's esophagus. She has also chronic sinusitis. PAST SURGICAL HISTORY: Significant for esophageal stricture that required dilatation twice. She has colonoscopies, a cyst removed from the ovary and cholecystectomy. ALLERGIES: She has no known drug allergies. MEDICATIONS: She is currently on following medications: She is on ciprofloxacin 500 mg twice a day, metronidazole 500 mg 3 times a day, meclizine 25 mg 3 times a day, ondansetron 4 mg every 6 hours, ranitidine 150 mg twice a day and lansoprazole 30 mg daily. FAMILY HISTORY: She has 10 brothers and 1 sister with a very strong family history of bronchial asthma. Her father at the age of 87. Mother at the age of 89, the cause of is not clear to her. SOCIAL HISTORY: She is , has 2 daughters and 1 son. She never smoked, does not drink alcohol or use any recreational drugs. 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 REVIEW OF SYSTEMS: The patient denied any blurring of vision, cataract, glaucoma or macular degeneration. Denied any earache, tinnitus or sensorineural deafness. Did complain of chronic sinusitis and postnasal drip. Denied any sore throat, sore tongue, toothache, hoarseness of voice. Did complain of difficulty swallowing when esophagus is narrowed, but does not have any symptoms like that now. She did not lose any weight. Denied any nausea, vomiting, diarrhea or constipation. Denied any hematemesis, melena or hematochezia. Denied any dysuria, frequency or hematuria. Denied any chest pain, shortness of breath, orthopnea, paroxysmal nocturnal dyspnea. Denied any cough, phlegm or hemoptysis. PHYSICAL EXAMINATION: GENERAL: On arrival to the Emergency Room, she looked well and was clearly in no apparent respiratory distress. No pallor, jaundice, cyanosis or thyromegaly. No jugular venous distention. No limb edema. VITAL SIGNS: Her heart rate was 74, blood pressure was 127/77, temperature was 98.6, respiratory rate was 18 and oxygen saturation was 96%. HEAD, EYES, EARS, NOSE AND THROAT: Showed normocephalic, atraumatic. NECK: Supple. HEART: Showed normal first and second heart sounds. No gallop, rub or murmur. CHEST: Clear to auscultation. No crepitation or rhonchi. ABDOMEN: Distended, soft with tenderness mostly in the left lower quadrant. There is no guarding or rigidity. No organomegaly. All hernial orifice intact. Bowel sounds normal. NEUROLOGIC: She was awake, alert, responding appropriately. All cranial nerves intact. EXTREMITIES: She moves extremities without difficulty. She ambulates without assistance or assistive devices. LABORATORY DATA: This morning showed a white cell count 5800, hemoglobin 11.9, hematocrit 38, MCV 87, platelet count of 157,000 with normal manual differential. Her chemistry showed a serum sodium 137, potassium 3.4, chloride 103, bicarbonate 25, anion gap of 9, BUN 7, creatinine 0.8, estimated GFR was 88 mL per minute. Her glucose 110, calcium was 9.3. Lactic acid was 0.8. Total bilirubin, AST, ALT, alkaline phosphatase were normal. Total protein 8.2, albumin was 3.5 and lipase was 63. Her urinalysis essentially unremarkable. She apparently has had a CT scan of the abdomen and pelvis done on 03/01, which basically showed that the heart size is normal, no pericardial effusion. Visualized lung bases are clear, no pleural effusion. Her liver, spleen, pancreas and adrenals are unremarkable. Gallbladder surgically absent. Kidneys demonstrate symmetric enhancement. No perinephric inflammation or hydronephrosis, no renal or ureteral calculi identified. Bladder is decompressed and not well evaluated. Uterus is absent. No abnormal adnexal masses. There is inflamed diverticula with associated wall thickening at the distal descending colon. No evidence of perforation or adjacent abscess. Remainder of the large and small bowels are unremarkable. Appendix is not identified. No free intraabdominal air or fluid. Abdominal aorta has a normal course and caliber. Abdominal vasculature is patent. No enlarged abdominal lymph nodes are identified. No suspicious osseous lesions or acute fracture. ASSESSMENT AND PLAN: The patient was admitted with acute diverticulitis and she was basically continued on her IV ciprofloxacin, IV Flagyl together with morphine. I will change the IV fluid to D5 half normal with 40 mEq of potassium chloride and we will start her on clear liquid diet to advance as tolerated. MARKOS LAZO MD DR: JEANNETTE/jacques JOB#: [id number] / [id number]
[2020-06-03 20:02] VITALS: BP 113/70
[2020-06-03] MEDS: MORPHINE SULFATE 4 MG/ML DISP.SYRIN. IV PRN ×2 (20:35→21:16)
[2020-06-03] MEDS ORDERED: POTASSIUM CHLORIDE 20 MEQ TABLET.ER. PO ONE (21:00)
[2020-06-03] MEDS: CIPROFLOXACIN 400MG PREMIX 200 ML IV SCH (21:09)
[2020-06-04 00:15] VITALS: BP 141/86
[2020-06-04] MEDS: POTASSIUM CL 40MEQ D5-0.45NACL 1,000 ML IV SCH ×3 (03:00→23:00)
--- NOTE | 2020-06-04 04:04 | NUR ---
Pt awoke at 0200 w/ complaints of feeling "shaky". VS were obtained. VS were in normal range. Pt believed that she felt this way because of her potassium pill she had taken at HS. Pts potassium was checked per electrolyte protocol. Potassium was in normal range at 4.0. Pt refused continuing scheduled fluids and appeared anxious. After disconnecting pt from fluids she is now resting comfortably in bed w/o further complaints of feeling "shaky". Call light is in reach will continue to monitor.
[2020-06-04 05:45] VITALS: BP 134/70
[2020-06-04 07:05] LABS: HEMATOCRIT 34.5 % (36.0-47.0); HEMOGLOBIN 10.9 g/dL (12.0-15.5); RED BLOOD COUNT 3.94 x10^6/uL (3.50-5.40); RED CELL DISTRIBUTION WIDTH 12.3 % (11.5-14.5); WHITE BLOOD COUNT 2.4 x10^3/uL (4.0-11.0)
[2020-06-04 07:31] LABS: ALBUMIN 3.1 g/dL (3.4-5.0); ALBUMIN/GLOBULIN RATIO 0.7 (1.0-1.7); CALCIUM 8.7 mg/dL (8.5-10.1); CREATININE 0.6 mg/dL (0.6-1.0); GFR 123.8; TOTAL BILIRUBIN 0.3 mg/dL (0.2-1.0); TOTAL PROTEIN 7.4 g/dL (6.4-8.2)
[2020-06-04] MEDS: CIPROFLOXACIN 400MG PREMIX 200 ML IV SCH ×2 (10:30→20:14)
[2020-06-04] MEDS: PANTOPRAZOLE IV 40 MG VIAL. IVP SCH (10:30)
[2020-06-04 10:50] VITALS: BP 118/69
[2020-06-04 15:01] VITALS: BP 104/68
[2020-06-04 20:02] VITALS: BP 130/73
--- NOTE | 2020-06-05 02:15 | PN ---
DATE: 06/04/2020 ATTENDING PHYSICIANS: Dr. Linn. SUBJECTIVE: Abdominal pain is better. She is also hungry. She is not nauseated. OBJECTIVE FINDINGS: VITAL SIGNS: Blood pressure today is 134/70 mmHg, pulse 68 and regular, temperature 97.9 degrees Fahrenheit, oxygen saturation 100% on room air. HEENT: Head is without trauma. Pupils are reactive. Sclerae nonicteric. Oropharynx clear. NECK: Supple, no bruits identified. LUNGS: Clear. CARDIOVASCULAR: Showed regular heart tones. No gallops. ABDOMEN: Soft. There is no guarding or rebound tenderness. Normoactive bowel sounds. EXTREMITIES: Showed no cyanosis or edema. NEUROLOGIC: Focally intact. Speech is fluent. PERTINENT LABORATORY STUDIES: From yesterday, white count was 5800, hemoglobin 11.9 g, potassium has been replaced up to 4.0 mEq per liter. ASSESSMENT: 1. A 59-year-old female with acute diverticulitis. 2. Abdominal pain, improved. 3. Hypokalemia, corrected. 4. History of esophageal strictures. 5. History of gastroesophageal reflux disease and Hollingsworth's esophagitis. PLAN: 1. Continue antibiotics as ordered. 2. Advance diet. 3. Tentative discharge plans for home tomorrow. GEOFF SALES MD DR: CIELO/jacques JOB#: [id number] / [id number]
[2020-06-05 05:55] VITALS: BP 129/77
[2020-06-05] MEDS: PANTOPRAZOLE IV 40 MG VIAL. IVP SCH (07:32)
[2020-06-05] MEDS ORDERED: LACTOBACILLUS RHAMNOSUS GG 1 CAPSULE. PO SCH (09:00)
--- NOTE | 2020-06-05 09:32 | NUR ---
PATIENT IS DISCHARGED HOME, DISCHARGE INSTRUCTION AND PRESCRIBED MEDS REVIEWED , PT VERBALIZED UNDERSTANDING. PATIENT LEFT UNIT VIA AMBULATION ACCOMPANIED BY THIS RN. PATIENT TAKEN HOME BY FAMILY MEMBER VIA PERSONAL VEHICLE.
--- NOTE | 2020-06-05 13:22 | DS ---
DATE OF DISCHARGE: 06/05/2020 ATTENDING PHYSICIAN: Dr. Sales. FINAL DISCHARGE DIAGNOSES: 1. Acute diverticulitis, improved. 2. Abdominal pain, improved. 3. Hypokalemia, corrected. 4. History of esophageal stricture. 5. Hollingsworth's esophagitis. 6. Gastroesophageal reflux disease. HISTORY AND PHYSICAL: This is a pleasant 59-year-old female admitted through the ED with abdominal pain. She had acute diverticulitis. PHYSICAL EXAMINATION: Please see the dictated note. PERTINENT LABORATORY AND X-RAY STUDIES: Admission abdominal and pelvic CT showed inflamed diverticula with associated wall thickening at the distal descending colon. No evidence of perforation or abscess is identified. Remainder of small and large intestines are unremarkable. No free intra-abdominal air or fluid. Hemoglobin on admission was 11.9 g/dL, white count 5800. Sodium 140 mEq, potassium was 3.4 mEq, replaced to 4.0. Chemistry panel unremarkable. Transaminases were all normal. Nonfasting blood sugar 104. COURSE IN THE HOSPITAL: The patient was admitted. She received 3 full days of intravenous antibiotics with marked improvement of symptoms. Diet was gradually advanced. She tolerated solid foods. Strong encouragement to avoid foods with seeds in it. She had been eating popcorn prior to this episode. On the third hospital day, her vital signs were quite stable. She was afebrile. Her blood pressure was 129/77, room air sats were 100%. Her abdominal exam was unremarkable. At this time, I recommended 6 more days of Levaquin 500 mg p.o. 1 daily. She had some nausea from the metronidazole and this was stopped. I recommended Lortab 7.5 mg 1 every 6 hours p.r.n. pain, Zofran 4 mg 1 every 6 hours p.r.n. nausea and a work release through 06/09/2020. She will follow up with her primary care physician at the [employer] [facility]. She was discharged then from our hospital in stable condition with explicit instructions involving care. GEOFF SALES MD DR: CIELO/jacques JOB#: [id number] / [id number] BEKAH Damon
== END 2020-06-05 09:30 | disposition home or self-care (01) | DRG 392 ==
LOC: ER 06:14 → 1 SOUTH 08:00
PROVIDERS: ADMIT Internal Medicine; ATTEND Internal Medicine
DX: K57.32 Diverticulitis of large intestine without perforation or abscess without bleeding (principal); E87.6 Hypokalemia; K22.70 Barrett's esophagus without dysplasia; K21.9 Gastro-esophageal reflux disease without esophagitis; J32.9 Chronic sinusitis, unspecified; Z90.49 Acquired absence of other specified parts of digestive tract; Z90.710 Acquired absence of both cervix and uterus; Z82.5 Family history of asthma and other chronic lower respiratory diseases
CPT/HCPCS: 36415; 80053; 81001; 83605; 83690; 84132; 84484; 85025; 85027; 87086; 96361; 96365; 96368; 96375; C9113; J0744; J2270; J2405; J3490; J7042; 99285-25; J7030